=== PATIENT | male | born 1965 | race Caucasian/White ===

== ENCOUNTER 2020-07-14 14:16 | Emergency (ER) | payer SELFPAY | END 2020-07-14 15:08 | disposition home or self-care (01) | LOC: MADERS 14:16 | DX: H60.92 Unspecified otitis externa, left ear (principal); I10 Essential (primary) hypertension; K21.9 Gastro-esophageal reflux disease without esophagitis; Z79.899 Other long term (current) drug therapy | CPT/HCPCS: 99282 ==